=== PATIENT | female | born 1955 | race Caucasian/White ===

== ENCOUNTER → 2018-04-25 | Outpatient (CLI) | payer BC ==
[~2018-04-25] MED LIST: IOHEXOL 300 MG/ML 75 ML VIAL. IV ONE
[2018-04-25 12:12] LABS: ALBUMIN 3.9 g/dL (3.4-5.0); CALCIUM 9.3 mg/dL (8.5-10.1); CREATININE 0.6 mg/dL (0.6-1.0); GFR 101.3; TOTAL BILIRUBIN 0.9 mg/dL (0.2-1.0); TOTAL PROTEIN 7.8 g/dL (6.4-8.2)
--- NOTE | 2018-04-25 12:50 | RAD ---
CT of the abdomen 04/25/2018 INDICATION: Status post endovascular repair of abdominal aortic aneurysm. COMPARISON STUDY: None available for review. TECHNIQUE: Multidetector CT imaging of the abdomen was performed following the administration of intravenous contrast. Note that precontrast imaging and delayed imaging was not performed. 3-D reconstructions of the abdominal vasculature were created on an independent workstation reviewed FINDINGS: Vascular findings: Visualized portions of the descending thoracic aorta are unremarkable. Celiac artery is patent. Superior mesenteric artery is patent. Renal arteries are patent bilaterally. Suprarenal fixation noted. Postsurgical changes following endovascular repair of abdominal aortic aneurysm are seen. Stent graft extends from below the renal arteries to the bilateral common iliac arteries. Stent graft appears widely patent. No evidence of endoleak is identified. Aneurysm sac diameter measures up to 3.8 cm. Recommend comparison with prior studies available. Mild bilateral internal iliac artery narrowing is seen. Nonvascular findings: Ill-defined hypoattenuation is seen within the distal body and tail of the pancreas. Rounded hypoattenuating masses are also seen in the distal most pancreatic tail, and pancreatic body. Evaluation is limited by arterial multiphase contrast-enhanced imaging. Findings raise concern for pancreatic neoplasm. Recommend dedicated pancreatic protocol MRI or multiphasic CT for further characterization. There is a nodule in the left adrenal gland measuring approximately 1.7 cm in diameter. Attention on follow-up multiphase imaging recommended. Small cyst noted in the inferior right kidney. No evidence of acute osseous abnormality is identified. IMPRESSION: 1. Postsurgical changes following endovascular repair of abdominal aortic aneurysm. No endoleak is identified. Aneurysm sac measures up to 3.8 cm in diameter. Comparison with prior CT imaging recommended. 2. Somewhat ill-defined hypodensity within the distal body and tail of the pancreas. There is a more focal rounded hypodensity in the distalmost pancreatic tail. Findings raise concern for pancreatic neoplasm/malignancy. Recommend further evaluation with a multiple pancreatic protocol MRI multiphase CT scan. Comparison with prior imaging studies also recommended. 3. 1.7 cm nodule, left adrenal gland. Attention on multiphase imaging study recommended, as metastasis cannot be excluded. Findings called to the ordering physician's office 12:45 PM 04/25/2018 CT DOSING PQRS STATEMENT: One or more of the following individualized dose reduction techniques were utilized for this examination: 1. Automated exposure control 2. Adjustment of the mA and/or kV according to patient size 3. Use of iterative reconstruction technique Electronically signed by: Danyel Decker MD (04/25/2018 12:47 PM) [id number]
== END | disposition home or self-care (01) ==
LOC: CT 10:24
PROVIDERS: ATTEND Internal Medicine Cardiovascular Disease
DX: I10 Essential (primary) hypertension (principal); I71.4 Abdominal aortic aneurysm, without rupture
CPT/HCPCS: 36415; 74175; 80053; 80061; Q9967

== ENCOUNTER → 2019-11-04 | Outpatient (CLI) | payer BC ==
--- NOTE | 2019-11-05 12:10 | RAD ---
Examination: CT ABDOMEN PELVIS WO CONTRAST History: Constipation and weight loss. Lack of appetite. Comparison/Correlation: 04/25/2018 CTA of the abdomen, MRI of the abdomen without and with contrast 03/30/2018 Findings: Axial images of the abdomen and pelvis were obtained without contrast. Sagittal and coronal reformatted images were provided. Lack of IV contrast may limit detection of mass lesions. Visualized lung bases are clear. Minimal right costophrenic sulcus atelectasis or scarring noted. Mosaic attenuation of the lung marie which may represent small airways or small vessel disease noted. Right hepatic lobe posterior segment hypoattenuating lesion is present within segment 6 measuring up to 2.5 cm diameter. Gallbladder fossa is unremarkable. Calcified granulomas involving the spleen. Mid to distal pancreatic body hypoenhancing lesion measuring 7.3 cm x 2.2 cm anteroposterior by 3.2 cm longitudinal and is ovoid in shape. Hounsfield units of 25 noted. Nodular involvement of the left adrenal gland has characteristics suspected of benign adenomatous involvement without significant change. Right adrenal gland is unremarkable. No radiopaque collecting system calculi are identified. No collecting system obstruction. Moderate quantity of stool in the colon. No inflammatory change about the cecum and appendix seen. Appendix is unremarkable. Diverticulosis is present. Bifurcated endoluminal stent graft is noted. No ascites or pelvic free fluid. Left groin surgical clips are present. Significant disc space narrowing of the lower lumbar spine from L4 to S1 is present. Facet joint degenerative changes within the lumbar spine noted. Left lower pelvic 1.6 cm diameter fluid attenuation lesion on axial image 107 of series 2 is present. This may represent an adnexal follicle. Right lower pelvic sidewall soft tissue nodular densities which are concerning for nonenlarged lymph nodes are present on axial images 98 through 109 of series 2. These do not appear to be associated with small bowel. Impression: Pancreatic body and tail lesion is present in the complex fluid density. Pancreatic carcinoma is of significant concern especially as there is a right hepatic lobe mass lesion which may represent metastasis. Further evaluation of the liver with MRI without and with contrast for more definitive detection of additional liver lesions are considered. Pancreas may also be further evaluated on MRI. Diverticulosis is present. Minimal edema about the appendix is present. No definite or significant distention of the appendix. Correlate clinically. Trace pelvic fluid noted. Possibility of right lower pelvic sidewall nonenlarged lymph nodes is raised. Consider further evaluation with CT with IV and oral contrast. Discussed with Dr. Zimmerman on 11/05/2019 at 12:07 PM. PQRS Compliance Statement: One or more of the following individualized dose reduction techniques were utilized for this examination: 1. Automated exposure control 2. Adjustment of the mA and/or kV according to patient size 3. Use of iterative reconstruction technique Electronically signed by: River Mei MD (11/05/2019 12:07 PM) [facility]
== END | disposition home or self-care (01) ==
LOC: CT 15:15
PROVIDERS: ATTEND Family Medicine
DX: K57.90 Diverticulosis of intestine, part unspecified, without perforation or abscess without bleeding (principal); D73.89 Other diseases of spleen; K86.89 Other specified diseases of pancreas; M48.07 Spinal stenosis, lumbosacral region; R63.4 Abnormal weight loss; K76.9 Liver disease, unspecified; K59.00 Constipation, unspecified
CPT/HCPCS: 74176

== ENCOUNTER → 2019-12-16 | Outpatient (CLI) | payer BC ==
--- NOTE | 2019-12-16 09:57 | RAD ---
Examination: Acute abdomen series HISTORY: Constipation COMPARISON: None available FINDINGS: The cardiomediastinal silhouette grossly appears unremarkable. Right-sided Port-A-Cath is identified. Mild prominent bilateral interstitial lung markings. Large amount of stool identified throughout the colon. Aortobiiliac stent graft is identified. IMPRESSION: 1. Large amount of stool identified in the colon likely constipation. Electronically signed by: Mandeep Goodwin MD (12/16/2019 9:54 AM) [id number]
== END | disposition home or self-care (01) ==
LOC: DXRAD 09:26
PROVIDERS: ATTEND Internal Medicine Gastroenterology
DX: K59.00 Constipation, unspecified (principal)
CPT/HCPCS: 74022